=== PATIENT | male | born 1955 | race Caucasian/White ===

== ENCOUNTER 2018-08-23 11:10 | Emergency (ER) | payer MEDICAID, OTHER ==
--- NOTE | 2018-08-23 11:49 | ED ---
Head Injury - HPI Summary HPI Summary: Patient is a 62-year-old male who presents emergency department for head injury and bilateral hand injuries after a mechanical fall that occurred just prior to arrival. Patient states his just mopped the kitchen floor when he walked on it and slipped on the wet floor striking the back of his head off the ground. Patient denies loss of consciousness. He complains of mild headache and pain to bilateral hands. Patient denies associate symptoms of visual changes, neck pain, chest pain, shortness of breath, syncope him, dizziness. Patient is not anticoagulated. Movement makes symptoms worse. Nothing makes symptoms better. Symptoms are moderate in severity. Unaware of last tetanus immunization. 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 Pain Intensity: 8 - Allergies/Home Medications Allergies/Adverse Reactions: Allergies Allergy/AdvReac Type Severity Reaction Status Date / Time No Known Allergies Allergy Verified 08/23/18 11:15 Home Medications: Home Medications Atorvastatin* [Lipitor 20 MG*] 1 tab PO DAILY 08/23/18 [History Confirmed ] Omeprazole 1 tab PO DAILY 08/23/18 [History Confirmed 08/23/18] buPROPion TAB* [Wellbutrin TAB*] 150 mg PO DAILY 08/23/18 [History Confirmed ] PMH/Surg Hx/FS Hx/Imm Hx Previously Healthy: Yes - Immunization History Date of Tetanus Vaccine: Unknown Infectious Disease History: No Infectious Disease History: Denies: Traveled Outside the [place] in Last 30 Days - Family History Known Family History: Positive: Non-Contributory - Social History Occupation: Retired Lives: With Family Alcohol Use: None Substance Use Type: Reports: None Smoking Status (MU): Heavy Every Day Tobacco Smoker Review of Systems Eyes: Negative Negative: Photophobia, Blurred Vision, Diplopia ENT: Negative Gastrointestinal: Negative Negative: Vomiting, Nausea Positive: Other - Pain to bilateral UEs Positive: Other - abrasion to scalp Positive: Headache. Negative: Weakness, Paresthesia, Numbness, Syncope All Other Systems Reviewed And Are Negative: Yes Physical Exam Triage Information Reviewed: Yes Vital Signs On Initial Exam: Initial Vitals Temp Pulse Resp BP Pulse Ox 98.6 F 86 18 170/88 98 08/23/18 11:13 08/23/18 11:13 08/23/18 11:13 08/23/18 11:13 08/23/18 11:13 Vital Signs Reviewed: Yes Appearance: Positive: Well-Appearing - Pt. sitting on bed in NAD. SO present. Skin: Positive: Warm, Dry Head/Face: Positive: Other - Superficial abrasion with underlying hematoma to posterior scalp. Eyes: Positive: Normal, EOMI, ROSEMARY Neck: Positive: Supple, Nontender - no midline tenderness. Musculoskeletal: Positive: Other - Pain on palpation over digits of right hand with full ROM. No wounds. Pain to diffuse hand and wrist of left UE. Neurological: Positive: Normal, CN Intact II-III Psychiatric: Positive: Affect/Mood Appropriate - [place] Coma Scale Best Eye Response: 4 - Spontaneous Best Motor Response: 6 - Obeys Commands Best Verbal Response: 5 - Oriented Coma Scale Total: 15 Diagnostics - Vital Signs Vital Signs Temp Pulse Resp BP Pulse Ox 08/23/18 11:13 98.6 F 86 18 170/88 98 - Laboratory Lab Statement: Any lab studies that have been ordered have been reviewed, and results considered in the medical decision making process. Head Injury Course/Dx Course Of Treatment: Pt. is a 62 y.o female who presents to the ER after mechanical fall. He has posterior scalp hematoma and mild h/a. He also notes bilateral hand/wrist pain. and pt. mostly concerned with head injury. CT scan obtained to r/o bleed, ebony fx. Xrays also obtained. Tetanus updated. CT scan and xrays negative for acute findings per radiology. Wound cleaned. Motrin given for pain. Pt. dc home to [facility] with PCP. To ice affected areas intermittently. Tylenol or motrin for pain as directed. Will return to ER if sxs change or worsen. Pt. understands and agrees with plan. - Diagnoses Differential Diagnosis/HQI/PQRI: Cerebral Contusion, Cervical Sprain, Concussion Without LOC, Contusion, Hematoma, Intracranial Bleed, Laceration, Skull Fracture Provider Diagnoses: Hand sprain, Finger sprain, Scalp hematoma, Scalp abrasion Discharge - Sign-Out/Discharge Documenting (check all that apply): Patient Departure Patient Received Moderate/Deep Sedation with Procedure: No - Discharge Plan Condition: Good Disposition: HOME Patient Education Materials: Head Injury (ED), Finger Sprain (ED) Referrals: Tita Jean MD [Primary Care Provider] - Additional Instructions: Follow up with PCP within one week Ice affected areas intermittently Keep wound clean and dry Tylenol or Motrin for pain as directed Return to ER if symptoms change or worse - Billing Disposition and Condition Condition: GOOD Disposition: Home
[2018-08-23] MEDS ORDERED: Tetan/Diph/Pertus SYR(Tdap)* 0.5 ML SYR(BOOSTRIX) use SYR IM ONE (12:09)
[2018-08-23] MEDS ORDERED: Ibuprofen TAB* 600 MG PO ONE (12:35)
[2018-08-23 13:04] VITALS: BP 148/85
== END 2018-08-23 13:02 | disposition home or self-care (01) ==
LOC: ED 11:10
DX: S63.92XA Sprain of unspecified part of left wrist and hand, initial encounter (principal); S63.91XA Sprain of unspecified part of right wrist and hand, initial encounter; S63.619A Unspecified sprain of unspecified finger, initial encounter; S00.03XA Contusion of scalp, initial encounter; Z23 Encounter for immunization; W01.0XXA Fall on same level from slipping, tripping and stumbling without subsequent striking against object, initial encounter; F17.210 Nicotine dependence, cigarettes, uncomplicated; Z79.899 Other long term (current) drug therapy; Y92.000 Kitchen of unspecified non-institutional (private) residence as the place of occurrence of the external cause
CPT/HCPCS: 70450; 90471; 90715; 99282; A9270-GY